=== PATIENT | female | born 1960 | race Hispanic/Latino ===

== ENCOUNTER 2022-05-05 23:48 | Emergency (ER) | payer OTHER ==
[~2022-05-05] VITALS: Ht 157.5 cm; Wt 73.9 kg
[2022-05-06] MEDS ORDERED: MECLIZINE HCL 12.5 MG TAB PO ONE (00:30)
[2022-05-06] MEDS ORDERED: ONDANSETRON HCL 4 MG ORAL DISINTEGRATING TAB PO ONE (00:30)
[2022-05-06] MEDS ORDERED: MECLIZINE HCL 12.5 MG TAB ONE (00:48)
[2022-05-06] MEDS ORDERED: ONDANSETRON HCL 4 MG ORAL DISINTEGRATING TAB ONE (00:48)
[2022-05-06 02:31] VITALS: BP 144/75
[2022-05-06] MEDS ORDERED: ANTIVERT25 M1 PO (02:44)
[2022-05-06] MEDS ORDERED: ONDANSETRON ODT4 MG PO (02:44)
== END 2022-05-06 02:48 | disposition home or self-care (01) ==
LOC: FSED 05-06 00:20
DX: R42 Dizziness and giddiness (principal); E11.65 Type 2 diabetes mellitus with hyperglycemia; I10 Essential (primary) hypertension
CPT/HCPCS: 70450; 80053; 85025; 99283; Q0162